=== PATIENT | male | born 1990 | race Hispanic/Latino ===

== ENCOUNTER 2018-11-24 14:34 | Emergency (ER) | payer SELFPAY ==
--- NOTE | 2018-11-24 17:07 | RAD ---
LEFT HAND THREE VIEWS: INDICATIONS: Laceration. Injury. Pain. FINDINGS: There is a comminuted fracture of the distal phalanx of the second digit. There are punctate densiti es within the adjacent distal soft tissues of the index digit. IMPRESSION: Comminuted fracture of the tuft and mid portion of the distal phalanx, second digit, with adjacent pu nctate soft tissue densities that may relate to minute comminuted fracture fragments. Embedded radio paque foreign bodies are also possible. POS: [facility]
== END 2018-11-24 18:38 | disposition home or self-care (01) ==
LOC: ERS 14:34
DX: S62.637B Displaced fracture of distal phalanx of left little finger, initial encounter for open fracture (principal); S61.211A Laceration without foreign body of left index finger without damage to nail, initial encounter; W26.8XXA Contact with other sharp object(s), not elsewhere classified, initial encounter
CPT/HCPCS: 12001